=== PATIENT | male | born 1970 | race Two or more races ===

== ENCOUNTER 2022-12-20 15:31 | Emergency (ER) | payer MEDICAID ==
[~2022-12-20] VITALS: Ht 172.7 cm; Wt 109.1 kg
[2022-12-20] MEDS ORDERED: PENI500T2 PO (17:56)
[2022-12-20] MEDS ORDERED: IBUP-1492 PO (17:56)
[2022-12-20 18:05] VITALS: BP 142/82
== END 2022-12-20 18:31 | disposition home or self-care (01) ==
LOC: EMS 15:32
DX: K02.9 Dental caries, unspecified (principal)
CPT/HCPCS: 99283